=== PATIENT | female | born 1995 | race Caucasian/White ===

== ENCOUNTER 2019-03-22 08:16 | Emergency (ER) | payer BC, OTHER ==
[~2019-03-22] VITALS: Ht 165.1 cm; Wt 94.0 kg
[~2019-03-22 08:16] MED LIST: ALBU8.5H8 IH; MECL12.574 PO; MONT10TA21 PO; MUPI22OI2 TOP; ONDA4TAB14 PO
[2019-03-22 08:17] VITALS: Ht 165.1 cm; Wt 94.0 kg
[2019-03-22] MEDS ORDERED: SOD CHLORIDE 0.9% 1,000 ML IV STA (08:28)
[2019-03-22] MEDS ORDERED: ONDANSETRON 4 MG INJ IV STA (08:28)
[2019-03-22] MEDS ORDERED: MECLIZINE 12.5 MG TAB PO ONE (08:30)
[2019-03-22 10:07] VITALS: BP 118/63; PULSE 81; RESP 18
--- NOTE | 2019-04-02 23:33 | ERD ---
ER Documentation Chief Complaint Chief Complaint diff breathing ,abd pain , nausea s/p bug bite to lt arm HPI Patient is a 23-year-old female, who presents the ER for multiple complaints. Patient states she has bug bites on her left arm. Patient states she noticed the bug bites this morning. Patient also started to feel dizzy with associated nausea this morning. Patient describes dizziness to be a room spinning sensation worse with positional changes. Patient does not have a headache. Patient denies any slurred speech, difficulty ambulating, unilateral weakness. Patient reports occasional diffuse abdominal pain. Patient has no chest pain, shortness of breath, vomiting. Patient denies any fevers or chills. Patient is concerned that her symptoms are due to her bug bites. ROS All systems reviewed and are negative except as per history of present illness. Medications Home Meds Active Scripts Meclizine Hcl* (Antivert*) 12.5 Mg Tab, 12.5 MG PO Q6H PRN for DIZZINESS, #20 TAB Prov:GIGI SHUKLA PA-C 03/22/19 Ondansetron (Ondansetron Odt) 4 Mg Tab.rapdis, 4 MG PO Q6H PRN for NAUSEA AND/OR VOMITING, #10 TAB Prov:GIGI SHUKLA PA-C 03/22/19 Mupirocin* (Bactroban*) 2% -22 Gram Oint...g., 1 APPLIC TOP BID for 7 Days, EA Prov:GIGI SHUKLA PA-C 03/22/19 Reported Medications Montelukast Sodium* (Singulair*) 10 Mg Tablet, 10 MG PO 03/20/11 Albuterol Sulfate* (Proair HFA*) 8.5 Gm Hfa.aer.ad, 8.5 GM IH 03/20/11 Allergies Allergies: Coded Allergies: No Known Allergies (Verified Allergy, Unknown, 03/22/19) PMhx/Soc History of Surgery: No Anesthesia Reaction: No Hx Neurological Disorder: No Hx Respiratory Disorders: Yes (ASTHMA) Hx Cardiac Disorders: No Hx Psychiatric Problems: No Hx Miscellaneous Medical Probl: No Hx Alcohol Use: No Hx Substance Use: No Hx Tobacco Use: No Smoking Status: Never smoker FmHx Family History: No diabetes Physical Exam Physical Exam GENERAL: Well-developed, well-nourished female. Appears in no acute distress. HEAD: Normocephalic, atraumatic. EYES: Pupils are equally reactive bilaterally. EOMs grossly intact. No conjunctival erythema. ENT: Moist mucous membranes. No uvula deviation. No kissing tonsils. NECK: Supple. No meningismus. Normal range of motion of the neck. LUNG: Clear to auscultation bilaterally. No rhonchi, wheezing, rales or coarse breath sounds. HEART: Regular rate and rhythm. No murmurs, rubs or gallops. ABDOMEN Soft, nontender, and nondistended. Positive bowel sounds in all four quadrants. No rebound tenderness, no guarding. (-) McBurney's point tenderness. No CVA tenderness. EXTREMITIES: Equal pulses bilaterally. No peripheral clubbing, cyanosis or edema. No unilateral leg swelling. NEUROLOGIC: Alert and oriented x3, cooperative. Mood and affect appropriate to situation. Cranial nerves II through XII are grossly intact. Normal speech. Motor exam: 5/5 strength in upper and lower extremities. Sensory exam: Sensation intact to light touch on all four extremities. Cerebellar function exam: Rapid alternating movements intact. No dysmetria on uhyglg-ja-kzuv and giop-cu-iczi test. Steady gait. No pronator drift. SKIN: Normal color. Warm and dry. No rashes or lesions. Results 24 hrs Laboratory Tests Test 03/22/19 08:43 03/22/19 08:44 03/22/19 08:48 White Blood Count 10.1 10^3/ul Red Blood Count 4.92 10^6/ul Hemoglobin 11.5 g/dl Hematocrit 37.9 % Mean Corpuscular Volume 77.0 fl Mean Corpuscular Hemoglobin 23.4 pg Mean Corpuscular 30.3 g/dl Hemoglobin Concent Red Cell Distribution Width 15.5 % Platelet Count 320 10^3/UL Mean Platelet Volume 9.7 fl Immature Granulocytes % 0.400 % Neutrophils % 51.7 % Lymphocytes % 40.5 % Monocytes % 4.7 % Eosinophils % 2.5 % Basophils % 0.2 % Nucleated Red Blood Cells % 0.0 /100WBC Immature Granulocytes # 0.040 10^3/ul Neutrophils # 5.2 10^3/ul Lymphocytes # 4.1 10^3/ul Monocytes # 0.5 10^3/ul Eosinophils # 0.3 10^3/ul Basophils # 0.0 10^3/ul Nucleated Red Blood Cells # 0.0 10^3/ul Sodium Level 140 mmol/L Potassium Level 3.9 mmol/L Chloride Level 107 mmol/L Carbon Dioxide Level 23 mmol/L Anion Gap 10 Blood Urea Nitrogen 14 mg/dl Creatinine 0.66 mg/dl Est Glomerular Filtrat > 60 mL/min Rate mL/min Glucose Level 143 mg/dl Calcium Level 9.1 mg/dl Total Bilirubin 0.4 mg/dl Direct Bilirubin 0.00 mg/dl Indirect Bilirubin 0.4 mg/dl Aspartate Amino 18 IU/L Transf (AST/SGOT) Alanine 15 IU/L Aminotransferase (ALT/SGPT) Alkaline Phosphatase 85 IU/L Total Protein 7.4 g/dl Albumin 4.2 g/dl Globulin 3.20 g/dl Albumin/Globulin Ratio 1.31 Urine Color YELLOW Urine Clarity SLIGHTLY CLOUDY Urine pH 5.0 Urine Specific [place] 1.023 Urine Ketones NEGATIVE mg/dL Urine Nitrite NEGATIVE mg/dL Urine Bilirubin NEGATIVE mg/dL Urine Urobilinogen NEGATIVE mg/dL Urine Leukocyte Esterase TRACE Long/ul Urine Microscopic RBC 0 /HPF Urine Microscopic WBC 7 /HPF Urine Squamous Epithelial Cells FEW /HPF Urine Bacteria FEW /HPF Urine Granular Casts FEW /HPF Urine Mucus FEW /HPF Urine Hemoglobin NEGATIVE mg/dL Urine Glucose NEGATIVE mg/dL Urine Total Protein NEGATIVE mg/dl POC Beta HCG, Qualitative NEGATIVE Current Medications Medications Dose Sig/Delaney Start Time Status Last (Trade) Ordered Route PRN Stop Time Admin Dose Reason Admin Sodium 1,000 ml @ Q1H STAT 03/22/19 DC 03/22/19 Chloride 1,000 mls/hr IV 08:28 08:46 03/22/19 09:27 Ondansetron 4 mg ONCE STAT 03/22/19 DC 03/22/19 HCl (Zofran IV 08:28 08:46 Inj) 03/22/19 08:31 Meclizine 25 mg ONCE ONCE 03/22/19 DC 03/22/19 HCl PO 08:30 08:46 (Antivert) 03/22/19 08:31 Procedures/MDM ED COURSE: The patient was stable throughout ED course. I kept the patient and/or family informed of laboratory and diagnostic imaging results throughout the ED course. EKG: Read by Dr. Ochoa, attending physician. EKG shows normal sinus rhythm at a rate of 76 bpm No arrhythmias, acute ST elevations or T wave changes were noted. DIAGNOSTIC IMAGING: Read by radiologist. Patient: JOSEPH HOLM : 1995 Age: 23 Sex: F MR #: [id number] DOS: 03/22/19 0828 Ordering MD: GIGI SHUKLA PA-C Location: [facility] Room/Bed: PROCEDURE: XR Chest. CLINICAL INDICATION: Shortness of breath. TECHNIQUE: Chest, 1 view. COMPARISON: None. FINDINGS: The cardiomediastinal silhouette is normal in size. No focal consolidation is seen. No pleural effusion is seen. No definite pneumothorax is seen. No acute osseous abnormality. IMPRESSION: No radiographic evidence of an acute cardiopulmonary process. RPTAT: [facility] Lois Knapp Physician Date Time Electronically viewed and signed by Lois Knapp Physician on 03/22/2019 09:14 PH/ CC: GIGI SHUKLA PA-C [id number] PROCEDURES: None. MEDICATIONS GIVEN: [None.] Patient tolerated medication well with no adverse reactions. Patient reported improvement in pain. MEDICAL DECISION MAKING: Patient is a 23-year-old female who presents the ER for concerns of insect bites as well as dizziness and nausea. Patient describes her dizziness to be a room spinning sensation. Vital signs were reviewed. Patient is afebrile. Patient was not hypoxic. Patient was hemodynamically stable. IV line was established. Blood work was obtained. CBC showed no evidence of systemic infection or severe anemia. CMP showed no evidence of electrolyte abnormalities, severe acidosis, alkalosis, renal failure, or liver disease. Lipase showed no evidence of acute pancreatitis. Urine test was negative. UA did show trace leukocyte esterase however patient was asymptomatic thus I do not feel that patient requires treatment at this time. EKG showed normal sinus rhythm. Chest x-ray was within normal limits. See formal reports above. Patient was given IV fluids, Zofran and meclizine. Upon reexamination, patient reported improvement in symptoms. Patient likely has benign positional vertigo. Low suspicion for CVA, TIA, Mnire's disease, otitis media, anemia, sepsis, electrolyte abnormalities, , UTI, pyelonephritis, nephrolithiasis, ACS, pleural effusion, PE, pneumonia. Patient also has insect bites for which she w as advised to put mupirocin on. Low suspicion for cellulitis, deep space infection, abscess. PRESCRIPTION: Meclizine, Zofran, Mupirocin DISCHARGE: At this time, patient is stable for discharge and outpatient management. I have instructed the patient to follow-up with his/her primary care physician in 1-2 days. I have discussed with the patient the possibility of needing to see a specialist for further workup and imaging studies if symptoms persist. I have instructed the patient to promptly return to the ER for any new or worsening symptoms including increased pain, fever, nausea, vomiting, weakness or LOC. The patient and/or family expressed understanding of and agreement with this plan. All questions were answered. Home care instructions were provided. Disclaimer: Inadvertent spelling and grammatical errors are likely due to EHR/dictation software use and do not reflect on the overall quality of patient care. Also, please note that the electronic time recorded on this note does not necessarily reflect the actual time of the patient encounter. Departure Diagnosis: Primary Impression: Vertigo Additional Impression: Insect bite Condition: Fair Patient Instructions: Allergic Reaction, Insect (General), Vertigo, Unspecified Additional Instructions: Call your primary care doctor TOMORROW for an appointment during the next 1-2 days.See the doctor sooner or return here if your condition worsens before your appointment time. GIGI SHUKLA PA-C Apr 02, 2019 23:28
== END 2019-03-22 10:09 | disposition home or self-care (01) ==
LOC: FTE 08:16
DX: S40.862A Insect bite (nonvenomous) of left upper arm, initial encounter (principal); J45.909 Unspecified asthma, uncomplicated; R42 Dizziness and giddiness; W57.XXXA Bitten or stung by nonvenomous insect and other nonvenomous arthropods, initial encounter; Y92.9 Unspecified place or not applicable
CPT/HCPCS: 36415; 71045; 80053; 81001; 81025; 85025; 93005; 96374; J2405; J7030; Z7502; Z7610